=== PATIENT | female | born 1970 | race Two or more races ===

== ENCOUNTER 2024-07-12 23:04 | Emergency (ER) | payer OTHER ==
[~2024-07-12] VITALS: Ht 165.1 cm; Wt 79.8 kg
[2024-07-12 23:16] VITALS: PULSE 90; RESP 18; TEMP 97.9
[2024-07-12 23:44] VITALS: BP 115/64; PULSE 90; RESP 18; TEMP 97.9; O2SAT 97
== END 2024-07-12 23:44 | disposition home or self-care (01) ==
LOC: FSED 23:14
DX: T16.2XXA Foreign body in left ear, initial encounter (principal); Z87.19 Personal history of other diseases of the digestive system
CPT/HCPCS: 99282